=== PATIENT | male | born 1960 | race Caucasian/White ===

== ENCOUNTER → 2023-06-13 10:13 | Outpatient (REF) | payer BC, SELFPAY | LOC: DHCBC MAIN 10:13 | PROVIDERS: ATTENDING PHYSICIAN Internal Medicine Cardiovascular Disease; FAMILY PHYSICIAN Family Medicine | DX: I42.0 Dilated cardiomyopathy (principal) | CPT/HCPCS: 93306 ==

== ENCOUNTER → 2024-08-20 12:14 | Outpatient (REF) | payer BC, SELFPAY | LOC: HWRAD 12:14 | PROVIDERS: ATTENDING PHYSICIAN Family Medicine | DX: K43.9 Ventral hernia without obstruction or gangrene (principal); N50.819 Testicular pain, unspecified | CPT/HCPCS: 76705; 76870; 93976 ==

== ENCOUNTER → 2024-09-06 10:47 | Outpatient (REF) | payer BC, SELFPAY | LOC: HWRAD 10:47 | PROVIDERS: ATTENDING PHYSICIAN Family Medicine | DX: Z87.891 Personal history of nicotine dependence (principal) | CPT/HCPCS: 71271 ==

== ENCOUNTER 2025-02-01 17:21 | Emergency (ER) | payer BC, SELFPAY ==
[2025-02-01 18:14] VITALS: BMI 25.1
[2025-02-01 18:18] VITALS: BP 142/84
[2025-02-01] MEDS: ZOFRAN 4 MG IV (18:37)
[2025-02-01] MEDS: MORPHINE SULFATE 2 MG IV (18:37)
[2025-02-01] MEDS: TORADOL 15 MG IV (18:37)
[2025-02-01 18:54] VITALS: BP 124/86
--- NOTE | 2025-02-01 19:29 | ED.GENMED ---
History of Present Illness
General
Chief Complaint: Musculo-Skeletal Complaint
Source: patient
Exam Limitations: none
Time Seen by Provider: 02/01/25 18:04
Nursing documentation reviewed up to this point in time: agreed with
History of Present Illness
History of Present Illness:
Patient presents to ED secondary to persistent right elbow pain with swelling, after he fell and hit his elbow. Denies any other injuries from the fall. Patient does not take any blood thinning medications. Denies loss of sensation or weakness.
Past History
Past History
ED Past Medical History: Asthma
Social History
Tobacco: Smoker
Personal:
Family History
Family History: Hypertension; Negative Early CAD
Review of Systems
Review of Systems
Allergies reviewed?: Yes
All Other Systems: ROS reviewed and negative except as documented in HPI and ROS
Constitutional: Reports no symptoms
Musculoskeletal: Reports other (Elbow pain with swelling)
Skin: Reports no symptoms
Neurological: Reports no symptoms
Phy Exam
Physical Exam
Physical Exam:
Physical Exam
General: mild painful distress, not acutely ill. afebrile
Head: nc/at. eomi
Neck: supple. no meningeal signs.
Neuro: alert and oriented x 3. no focal neurological deficits
Skin: no rash
Psychiatric: well kept. interactive and cooperative
Extremities: right elbow: moderate swelling with tenderness without obvious deformity
Course
Orders/Labs/Results
Orders:
Orders
02/01/25 17:40
CR Elbow - Right Min 3 Views Urgent
Comment:
Reason For Exam: elbow pain after fall
02/01/25 18:28
Ketorolac [Toradol] 15 mg IV NOW STA
Morphine Sulfate 2 mg IV NOW STA
Ondansetron Injectable [Zofran] 4 mg IV NOW STA
02/01/25 19:40
Oxycodone/Acetaminophen [Percocet 5/325] 1 tablet PO NOW STA
Vital Signs
Initial and Last Documented VS:
Initial Vital Signs
Temp Pulse Resp Pulse Ox
97.5 F 52 20 98
02/01/25 17:24 02/01/25 17:24 02/01/25 17:24 02/01/25 17:24
Last Documented Vital Signs
Temp Pulse Resp BP Pulse Ox
97.5 F 48 15 124/86 99
02/01/25 17:24 02/01/25 18:54 02/01/25 18:54 02/01/25 18:54 02/01/25 19:29
MDM/Problems Addressed
MDM/Problems Addressed:
History, exam, and x-ray consistent with fracture. Patient otherwise remains neurovascularly intact. Patient will be provided w posterior splint and placed on arm sling, with referral to orthopedic surgery for outpatient follow-up. Pt will be
discharged home to the care of his spouse.
*Pulse Oximetry
SaO2: 99
Oxygen Mode of Delivery: Room air
Patient hypoxic: no
*Critical Care Note
Total Time (30-74mins, 75-104mins- exclusive of procedures): Not Applicable
ED Attending Note
-
Portions of this chart may have been created with voice recognition software.� Occasional wrong word or��sound alike� substitutions may have occurred due to the inherent limitations of voice recognition software.
Discharge Plan
Departure
Patient Disposition: Home (Routine Discharge)
Date of Disposition: 02/01/25
Time of Disposition: 19:32
Patient with high blood pressure during this ER visit?: Yes
Condition: Fair
Discharge Problem:
Elbow fracture
Instructions: How to Use a Shoulder Sling, Elbow Fracture, Adult ED
Prescriptions:
New
oxycodone-acetaminophen [Percocet] 5-325 mg Tablet
1 tab PO Q6HPRN PRN (Reason: pain) Qty: 12 0RF
No Action
carvedilol [Coreg] 3.125 mg Tablet
3.125 mg PO BID
aspirin 81 mg Tablet,Chewable
81 mg PO DAILY
Entresto 24-26 mg Tablet
1 tab PO BID
Referrals:
Dawit Torres MD [Active, Orthopedics]
Ruslan Trevino Jr., DO [Family Provider, Internal Medicine]
Activity Restrictions/Additional Instructions:
As discussed, please follow-up with referred orthopedic surgeon for further evaluation and treatment. Your prescription has been sent electronically to [facility] pharmacy on [address] [facility] in [place].
Interventions
Interventions:
*Risk Screen - Suicide Last Done: 02/01/25 17:32
*General Assessment Last Done: 02/01/25 17:24
*Neglect/Abuse Screening Last Done: 02/01/25 17:32
*ED- Fall Risk Assessment Last Done: 02/01/25 17:32
*ED COVID-19 Vaccine History Last Done: 02/01/25 18:14
*ED Influenza Vaccine History Last Done: 02/01/25 18:14
*Nursing Disposition Last Done: 02/01/25 19:50
ED-Musculoskeletal Assessment Last Done: 02/01/25 17:47
Discharge Date and Time
Discharge Date/Time: 02/01/25 19:51
Print Language: [place]
[2025-02-01] MEDS: PERCOCET 5/325 1 TABLET PO (19:43)
== END 2025-02-01 19:51 | disposition home or self-care (01) ==
LOC: EMR 17:21
PROVIDERS: EMERGENCY PHYSICIAN Emergency Medicine; FAMILY PHYSICIAN Family Medicine
DX: S52.031A Displaced fracture of olecranon process with intraarticular extension of right ulna, initial encounter for closed fracture (principal); W19.XXXA Unspecified fall, initial encounter; J45.909 Unspecified asthma, uncomplicated; F17.200 Nicotine dependence, unspecified, uncomplicated
CPT/HCPCS: 29105; 96374; 96375; 99284; 73080

== ENCOUNTER → 2025-02-04 09:46 | Outpatient (REF) | payer BC, SELFPAY ==
[2025-02-04 11:05] LABS: Hematocrit 38.2 % (39.0-52.0); Hemoglobin 13.0 g/dL (13.0-18.0); Mean Corp Hgb Conc. 34.0 g/dL (33.0-37.0); Mean Corpuscular Volume 92.3 fL (80.0-94.0); Nucleated Red Blood Cells % 0 % (-); Platelet Count 200 10^3/uL (130-400); Red Cell Dist. Width 12.2 % (11.5-14.5)
[2025-02-04 13:02] LABS: Blood Urea Nitrogen 24 mg/dl (9-20); Calcium 9.6 mg/dl (8.4-10.2); Carbon Dioxide 27 mmol/L (22-30); Chloride 94 mmol/L (98-107); Glucose 135 mg/dl (70-99); Potassium 5.4 mmol/L (3.5-5.1); Sodium 127 mmol/L (135-145); eGFR > 60.00
== END ==
LOC: REG 09:46
PROVIDERS: ATTENDING PHYSICIAN Orthopaedic Surgery; FAMILY PHYSICIAN Family Medicine
DX: Z01.818 Encounter for other preprocedural examination (principal)
CPT/HCPCS: 36415; 80048; 85025

== ENCOUNTER 2025-02-07 06:16 | Day surgery (SDC) | payer BC, SELFPAY ==
[2025-02-07] VITALS (9 sets, daily range): BP systolic 132–177; BP diastolic 72–86; BMI 24.6
[2025-02-07] MEDS: CELEBREX 200 MG PO (12:47)
[2025-02-07] MEDS: TYLENOL 1000 MG PO (12:47)
[2025-02-07] MEDS: NORMOSOL-R/PLASMALYTE-A 1000 IV (12:53)
[2025-02-07] MEDS: DILAUDID 0.25 MG IV ×4 (14:54→15:39)
== END 2025-02-07 17:19 | disposition home or self-care (01) ==
LOC: SDS 06:16
PROVIDERS: ATTENDING PHYSICIAN Orthopaedic Surgery
DX: S52.021A Displaced fracture of olecranon process without intraarticular extension of right ulna, initial encounter for closed fracture (principal); W19.XXXA Unspecified fall, initial encounter
CPT/HCPCS: 24685; C1713